=== PATIENT | male | born 1970 | race Caucasian/White ===

== ENCOUNTER 2018-09-07 09:22 | Inpatient (IN) ==
[2018-09-07] MEDS ORDERED: methylPREDNISolone 125 MG/2 ML VIAL IV STA (09:37)
[2018-09-07] MEDS ORDERED: ALBUT/IPRATROP 3MG/0.5MG NEB 3 ML VIAL NEB STA (09:37)
[2018-09-07] MEDS ORDERED: SODIUM CHLORIDE 0.9% 1000ML 1,000 ML IV ONE (09:37)
[2018-09-07 10:06] LABS: Basophils # (auto) 0.02 K/uL (0-0.2); Basophils % (auto) 0.2 %; Eosinophils # (auto) 0.06 K/uL (0-0.5); Eosinophils % (auto) 0.5 %; Hematocrit (blood only) 45.4 % (42-52); Hemoglobin 15.5 g/dL (14.0-18.0); Immature Granulocytes % (auto) 0.8 %; Lymphocytes # (auto) 1.16 K/uL (1.2-3.4); Lymphocytes % (auto) 9.6 %; Mean Corpuscular Hgb Conc 34.1 g/dL (32-36); Mean Corpuscular Volume 93.8 fL (80-100); Mean Platelet Volume 9.8 fL (7.4-10.4); Monocytes % (auto) 14.1 %; Neutrophils # (auto) 9.02 K/uL (1.4-6.5); Neutrophils % (auto) 74.8 %; Platelet Count 427 K/uL (130-400); RDW Coefficient of Variation 12.8 % (11.5-14.5); RDW Standard Deviation 44.2 fL (36.4-46.3); Red Blood Count 4.84 M/uL (4.7-6.1); White Blood Count 12.06 K/uL (4.8-10.8)
[2018-09-07 10:06] LABS: Base Excess VBG 6.7 mEq/L; HCO3 VBG 32 mmol/L; PCO2 VBG 45 mmHg (38-50); PO2 VBG 23 mmHg; pH VBG 7.46 (7.36-7.41)
[2018-09-07 10:07] LABS: Oxygen Saturation VBG < 60.0 %
[2018-09-07] MEDS ORDERED: ONDANSETRON INJ 2 MG/ML 2 ML VIAL IV STA (10:07)
[2018-09-07 10:15] LABS: INR 1.1 (0.9-1.1); Partial Thromboplastin Time 24.7 Seconds (21.0-31.0); Prothrombin Time 11.3 Seconds (9.0-12.0)
--- NOTE | 2018-09-07 10:16 | XRay Report ---
XR chest 1V portable CLINICAL HISTORY: Hypoxia. COMPARISON STUDY: Chest radiograph February 18, 2008. FINDINGS: No pneumothorax or pleural effusion is identified. There is extensive bilateral mid and low er lung airspace opacity. Cardiac size is normal. There is apparent slight widening of the right para tracheal stripe. Several old right rib fractures are incidentally noted. IMPRESSION: Extensive bilateral mid and lower lung airspace opacity which favors pneumonia. Pulmonar y edema could appear similar although is considered less likely. Radiographic follow-up to ensure res olution is recommended. Electronically signed by: Barron Alvarez M.D. 09/07/2018 10:14 AM
[2018-09-07] MEDS ORDERED: VANCOMYCIN HCL 1,000 MG/270 ML BAG IV STA (10:18)
[2018-09-07] MEDS ORDERED: CEFEPIME 1,000 MG in SYRINGE 0 ML IV STA (10:18)
[2018-09-07] MEDS ORDERED: VANCOMYCIN CONSULT ACTIVE PRN (10:18)
[2018-09-07 10:28] LABS: Alanine Aminotransferase 59 U/L (12-78); Albumin Level 2.6 gm/dl (3.4-5.0); Aspartate Aminotransferase 57 U/L (15-37); BUN Creatinine Ratio 15.8 (10-20); Bilirubin Direct 0.6 mg/dl (0-0.2); Blood Urea Nitrogen 13 mg/dl (7-18); Calcium 8.3 mg/dl (8.5-10.1); Carbon Dioxide 29 mmol/L (21-32); Chloride 96 mmol/L (98-107); Creatinine Clr Calc Pharmacy 125.1 ml/min; Est GFR (African American) 123.5; Est GFR (Non-African American) 106.6; Glucose 105 mg/dl (70-99); Sodium 135 mmol/L (136-145)
[2018-09-07 10:33] LABS: Alkaline Phosphatase 66 U/L (45-117); Bilirubin,Total 1.4 mg/dl (0.2-1); Total Protein 6.8 gm/dl (6.4-8.2); Troponin I < 0.015 ng/ml (0-0.045)
[2018-09-07] MEDS ORDERED: POTASSIUM CHLORIDE 10 MEQ TABCR PO STA (10:49)
[2018-09-07 10:58] LABS: Influenza A virus by PCR Neg for Influ A (Neg); Influenza B virus by PCR Neg for Influ B (Neg)
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
[2018-09-07 13:42] LABS: Allen Test Pos (Pos); HCO3 ABG 25 mmol/L (19-24); PCO2 ABG 33 mmHg (35-46); PO2 ABG 72 mm/Hg (80-95); pH ABG 7.49 (7.35-7.45)
[2018-09-07] MEDS ORDERED: ICU PROTOCOL FOR HYPERGLYCEMIA PRN (14:14)
--- NOTE | 2018-09-07 14:56 | Pharmacy Report ---
Pharmacy Abx Dose Short Note - Date of Service September 07, 2018 - Assessment & Plan Assessment 48 year old M receiving vancomycin for treatment of pulmonary source. Day # 1/7 of antimicrobial therapy. Pt population p'kinetics: t1/2=6.6, ke=.104. His renal fxn looks to be at baseline. No other antimicrobials ordered at this point in time. initial PCT=WNL Plan Mr. Henry received a 1000mg (13mg/kg) vanco dose in the ER. Will start vancomycin 1250mg (16mg/kg) q8 early. Trough ordered for 09/08/18 @0930, prior to the third maintenance dose. Goal trough 15-20mcg/mL. Pharmacy will continue to follow and will adjust dose/frequency as necessary. Thank you.
--- NOTE | 2018-09-07 15:46 | Emergency Department Note ---
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 Discharge Assessment Last Done: 09/07/18 13:50 The scribe's documentation has been prepared under my direction and personally reviewed by me in its entirety. I confirm that the note above accurately reflects all work, treatment, procedures, and medical decision making performed by me.
[2018-09-07] MEDS ORDERED: OPTIRAY 320 125ml IV PRN (16:49)
--- NOTE | 2018-09-07 17:10 | CT Scan Report ---
CHEST CTA for PULMONARY ARTERIES CT DOSE: 393.39 mGy.cm HISTORY: Cough. Short of breath. TECHNIQUE: Multiaxial CT images of the chest were performed following the intravenous administration of contrast to evaluate the pulmonary arteries. Maximal intensity projection images were also obtaine d. A dose lowering technique was utilized adhering to the principles of ALARA. COMPARISON STUDY: Chest 09/07/2018. FINDINGS: Normal caliber thoracic aorta with no evidence for dissection. The heart is top normal in s ize. No pericardial effusion. Trace bilateral pleural effusions. The main and lobar pulmonary arterie s are patent. The majority of the segmental and subsegmental pulmonary arteries are not well evaluate d due to the motion artifact and extensive consolidation. There is a single filling defect seen withi n a segmental branch of the left upper lobe best seen on images 143 through 147. This is consistent w ith a small pulmonary embolus. The visualized liver is unremarkable. Lobular appearance to the spleen may be a result of prior trauma or a esophagus is normal and course and caliber. Subcentimeter media stinal and hilar lymph nodes do not meet CT criteria for pathologic involvement. No suspicious lytic or blastic osseous lesions. Old, healed right anterior rib fractures. The central airways are patent. No pneumothorax. Multifocal patchy groundglass airspace opacities seen within the upper to mid lung sounds demonstrating a peripheral distribution and interlobular septal thickening. This would be cons istent with a "crazy paving pattern". The bilateral lower lobe airspace opacities have a more consoli dative appearance but also demonstrate interlobular septal thickening. No areas of cavitation identif ied. IMPRESSION: 1. A single segmental pulmonary embolus within the left upper lobe. 2. Extensive bilateral airspace opacities which demonstrate a peripheral and basilar predominance. Th e majority of these airspace opacities suggest a "crazy paving pattern". This is a nonspecific findin g but can be seen the setting of a bacterial pneumonia, acute respiratory distress syndrome, pulmonar y hemorrhage from Goodpasture's syndrome, or eosinophilic pneumonia. Additional etiologies such as pu lmonary alveolar proteinosis, drug induced pneumonitis, or sarcoidosis could also have a similar appe arance in the appropriate clinical setting. 3. Trace bilateral pleural effusions. Electronically signed by: Jonathan Devine M.D. 09/07/2018 5:09 PM
[2018-09-07] MEDS: VANCOMYCIN HCL 1,250 MG in SODIUM CHLORIDE 0.9% 250 ML IV SCH (18:45)
[2018-09-07] MEDS: methylPREDNISolone 40 MG in SYRINGE 0 ML IV SCH (20:57)
[2018-09-07] MEDS: CEFEPIME 2,000 MG in SYRINGE 7.5 ML IV SCH (20:57)
[2018-09-07] MEDS ORDERED: HEPARIN IV BOLUS 6,000 UNITS in SYRINGE 0 ML IV ONE (21:30)
[2018-09-07] MEDS: HEPARIN STANDARD DEXTROSE 25,000 UNITS/500 ML IV SCH (22:28)
[2018-09-07] MEDS: ALBUT/IPRATROP 3MG/0.5MG NEB 3 ML VIAL NEB PRN (22:29)
[2018-09-08] MEDS: VANCOMYCIN HCL 1,250 MG in SODIUM CHLORIDE 0.9% 250 ML IV SCH ×2 (02:00→09:45)
[2018-09-08] MEDS: methylPREDNISolone 40 MG in SYRINGE 0 ML IV SCH ×2 (02:01→15:16)
[2018-09-08] MEDS: CEFEPIME 2,000 MG in SYRINGE 7.5 ML IV SCH (04:48)
[2018-09-08 05:04] LABS: Magnesium 2.6 mg/dl (1.8-2.4); Phosphorus 3.4 mg/dl (2.5-4.9)
[2018-09-08] MEDS: ALBUT/IPRATROP 3MG/0.5MG NEB 3 ML VIAL NEB PRN (05:15)
[2018-09-08 05:24] LABS: iSTAT Allen Test Pass; iSTAT Arterial Blood Gas HCO3 23 meg/L (19-24); iSTAT Carbon Dioxide 24 mEq/l (24-31); iSTAT FiO2 85 %
[2018-09-08 05:24] LABS: Partial Thromboplastin Time 72.8 Seconds (21.0-31.0)
[2018-09-08 05:32] LABS: Amphetamines+Metham, Urine Neg (Neg); Barbiturates, Urine Neg (Neg); Benzodiazepine, Urine Neg (Neg); Cocaine, Urine Neg (Neg); MDMA (Ecstacy), Urine Neg (Neg); Methadone, Urine Neg (Neg); Opiate, Urine Pos (Neg); Phencyclidine, Urine Neg (Neg)
[2018-09-08 05:44] LABS: Basophils # (auto) 0.01 K/uL (0-0.2); Basophils % (auto) 0.1 %; Hematocrit (blood only) 38.8 % (42-52); Hemoglobin 13.2 g/dL (14.0-18.0); Immature Granulocytes # (auto) 0.06 K/uL (0.00-0.02); Immature Granulocytes % (auto) 0.5 %; Lymphocytes # (auto) 0.82 K/uL (1.2-3.4); Lymphocytes % (auto) 6.6 %; Mean Corpuscular Volume 92.8 fL (80-100); Mean Platelet Volume 9.7 fL (7.4-10.4); Monocytes # (auto) 0.76 K/uL (0.11-0.59); Monocytes % (auto) 6.1 %; Neutrophils # (auto) 10.78 K/uL (1.4-6.5); Neutrophils % (auto) 86.7 %; Platelet Count 469 K/uL (130-400); RDW Standard Deviation 43.9 fL (36.4-46.3); Red Blood Count 4.18 M/uL (4.7-6.1); White Blood Count 12.43 K/uL (4.8-10.8)
[2018-09-08 06:24] LABS: BUN Creatinine Ratio 28.7 (10-20); Calcium 8.1 mg/dl (8.5-10.1); Creatinine Clr Calc Pharmacy 180.9 ml/min; Est GFR (African American) 143.8; Potassium 3.9 mmol/L (3.5-5.1)
--- NOTE | 2018-09-08 07:56 | XRay Report ---
XR chest 1V portable HISTORY: Short of breath. COMPARISON: Chest CTA 09/07/2018. FINDINGS: Peripheral and bibasilar airspace opacities are not significantly changed. The heart remain s top normal in size. No pneumothorax. Trace bilateral pleural effusions persist. IMPRESSION: No change in the bilateral airspace opacities and trace bilateral pleural effusions. Electronically signed by: Jonathan Devine M.D. 09/08/2018 7:55 AM
[2018-09-08 08:16] LABS: Hepatitis B Surface Antigen Neg (Neg)
[2018-09-08] MEDS ORDERED: fentaNYL citrate 100 MCG/2 ML VIAL IV ONE ×2 (08:30→09:37)
[2018-09-08] MEDS ORDERED: SUCCINYLCHOLINE 100MG/5ML SYR IV ONE (08:30)
[2018-09-08] MEDS ORDERED: MIDAZOLAM HCL 5 MG/ML 1 ML VIAL IV ONE (08:30)
[2018-09-08 08:44] LABS: Hepatitis C IgG 13Yrs+Old_Rflx Neg (Neg)
[2018-09-08] MEDS ORDERED: VANCOMYCIN TROUGH ONE (09:30)
[2018-09-08] MEDS ORDERED: CISATRACURIUM BESYLATE IV SOLN 2 MG/ML 10 ML VIAL IV STA (09:32)
[2018-09-08] MEDS ORDERED: PROPOFOL 1,000 MG/100 ML VIAL IV STA (09:32)
[2018-09-08] MEDS ORDERED: fentaNYL citrate 100 MCG/2 ML VIAL IV PRN (09:32)
[2018-09-08] MEDS ORDERED: SUCCINYLCHOLINE CHLORIDE 20 MG/ML 10 ML VIAL IV STA ×2 (09:36→09:39)
[2018-09-08] MEDS ORDERED: fentaNYL citrate 100 MCG/2 ML VIAL IV STA ×2 (09:39→14:13)
[2018-09-08] MEDS ORDERED: PROPOFOL IV EMULSION 10 MG/ML 100 ML VIAL IV ONE (09:42)
[2018-09-08] MEDS ORDERED: RAPID SEQUENCE INDUCTION BAG ONE (09:42)
--- NOTE | 2018-09-08 10:02 | Critical Care Progress Note ---
Date of Service September 08, 2018 Patient reports that he feels better than upon admission however he is short of breath with 3-4 words and definitely more tachypneic. Supervising Physician Co-Signing Physician Notes Reason Critically Ill: 48-year-old male with hypoxemic respiratory failure PLAN: Neuro: Neuromuscular blockade with cisatracurium Bis monitoring goal BIS 40 -Propofol for sedation -Fentanyl for analgesia Resp: Mechanical ventilation utilizing [place] that guidelines -Starting at 450 tidal volume and decreasing from their goal pH 7.2 CV: Tachycardia likely secondary to anxiety Fluids/Renal: Normosol at 80 ID: Vancomycin and cefepime -Finished course of doxycycline previously -Bronchoscopy later today for samples -Urine drug screen positive for opiates reports he had taken codeine cough syrup for approximately 4 days -Denies IVDA, HIV and hepatitis pending GI/Nutrition: Start trickle feeds History of splenectomy -Has residual splenic tissue seen on CT Heme: Small subsegmental PE -Heparin infusion DVT prophylaxis: Heparin infusion Endocrine: ICU hyperglycemia protocol Solu-Medrol 40 every 6x3 doses given -Holding while undergoing neuromuscular blockade Vascular access: Peripheral IVs Code Status: Full code I have personally spent 70 minutes of critical care time in the direct management of this patient. This is a life/limb threatening event. This includes time spent evaluating patient, direct bedside care, chart review, placing orders, interpretation of diagnostic studies, discussion with consultants, patient, and/or family members regarding treatment decisions, as well as other required patient management activities. This time is exclusive of all separately billable procedures, and teaching time and separate from and in addition to any other critical care service time. Physical Exam 2 Vital Signs (Past 24 Hours): Last Vital Signs Temp 36.6 C 09/08/18 04:00 Pulse 99 H 09/08/18 06:00 Resp 20 09/08/18 06:00 BP 119/70 09/08/18 06:00 Pulse Ox 95 09/08/18 06:00 General: Alert. nontoxic. Skin: Warm, dry, Head: Atraumatic Ears, nose, mouth and throat: airway patent Cardiovascular: Normal peripheral perfusion, tachycardia Respiratory: Tachypnea with accessory muscle use and coarse breath sounds bilaterally Gastrointestinal: Non distended Musculoskeletal: No deformity
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
[2018-09-08] MEDS: PROPOFOL 1,000 MG/100 ML VIAL IV SCH ×2 (10:30→13:55)
[2018-09-08] MEDS: fentaNYL DRIP 1,250 MCG/250 ML BAG IV SCH ×2 (10:30→19:07)
[2018-09-08] MEDS ORDERED: CISATRACURIUM BOLUS FROM BAG IV ONE (10:30)
[2018-09-08] MEDS: CISATRACURIUM BESYLATE 40 MG in 0.9 % SODIUM CHLORIDE 80 ML IV SCH ×4 (10:45→22:19)
--- NOTE | 2018-09-08 11:22 | Procedure Note ---
Procedure Note: Bronchoscopy Procedure Procedure date: September 08, 2018 Procedure: fiberoptic bronchoscopy Pre-procedure Diagnosis: Acute hypoxic respiratory failure Post-procedure Diagnosis: same as above Prior to Procedure: Informed Consent: The risks, benefits, indications, potential complications, and alternatives were explained to the patient and informed consent obtained. Attending Staff: Arjun Bernal DO Resident/APC: Not applicable Skin Prep: Not applicable Anesthesia: Continuous propofol infusion, IV fentanyl infusion Indications: 48-year-old male with acute hypoxic respiratory failure bilateral infiltrates. The identity of the patient was confirmed and a bedside time out was performed. Description of Procedure: Fiberoptic bronchoscopy was performed via endotracheal tube. Bronchioalveolar lavage right middle lobe was performed. Findings included: Serial lavage did not demonstrate diffuse alveolar hemorrhage , lungs were hyperemic with evidence of inflammation however there was no purulence to indicate bacterial infection. Complications: None Specimens: Bronchial washings sent for culture and Gram stain, cytology, fungal elements, and AFB stain and culture. Estimated blood loss: Zero
[2018-09-08] MEDS: ACYCLOVIR SOD 780 MG in DEXTROSE 5% 250 ML IV SCH ×2 (12:28→19:46)
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
[2018-09-08] MEDS: NORMOSOL-R 1,000 ML IV SCH (13:17)
[2018-09-08 13:38] LABS: iSTAT Allen Test Pass; iSTAT Arterial Blood Gas HCO3 26 meg/L (19-24); iSTAT Carbon Dioxide 27 mEq/l (24-31); iSTAT FiO2 60 %
[2018-09-08] MEDS ORDERED: MIDAZOLAM HCL 1 MG/ML 2ML VIAL IV PRN (14:11)
[2018-09-08] MEDS ORDERED: MIDAZOLAM HCL 1 MG/ML 2ML VIAL IV ONE ×2 (14:17→17:33)
[2018-09-08] MEDS ORDERED: MIDAZOLAM HCL 5 MG/ML 1 ML VIAL ONE (15:18)
--- NOTE | 2018-09-08 15:32 | Procedure Note ---
Procedure Note Date of Service September 08, 2018 Note Procedure Name: Central venous catheter placement Date of Service: 09/08/2018 Time of procedure: 14:50 Site: Right internal jugular Consent: Obtained in writing by Dr. Bernal prior to the procedure Indication: Poor venous access, need for medication administration Narrative: A time out was performed. Using bedside ultra sound, the right IJ vein was identified as well as the right carotid artery. Images were obtained and saved to the PACS system. Using strict sterile technique, the ultra sound was used to identify the right internal juglar vein and 3 Mls of 1% lidocaine was used to anesthetize the area. With the IJ identified, a finder needle was advanced using negative pressure until a flash was observed in the syringe. I was able to easily draw blood into the syringe. A guidewire was then easily advanced into the vein and the finder needle was withdrawn. A dilator was then used and advanced without an incision. The dilator was then removed and a triple lumen catheter was easily placed to 15cm. There was no significant ectopy on the monitor and no hemodynamic change. The guidewire was easily removed and claves were placed on each hub. There was adequate draw and flush with each of the three ports. A chlorhexadine disc was placed at the insertion site of the catheter. The proximal hub was then secured with two sutures. The distal hub was secured with a STATLok device. A sterile dressing was placed over the catheter. Complications: None Blood loss: 2 mls The patient tolerated the procedure well. A post procedure CXR was obtained and showed adequate placement of the catheter and no evidence of pneumothorax. At the completion of the procedure, Dr. Bernal was updated.
--- NOTE | 2018-09-08 15:36 | XRay Report ---
XR chest 1V portable CLINICAL HISTORY: Placement of Right IJ CVC dyspnea. Tube position. COMPARISON STUDY: 09/08/2018 6:35 AM FINDINGS: Unchanging bibasilar parenchymal infiltrative change. Endotracheal tube 5 cm above the mel na. Central catheter in superior vena cava. No evidence of pneumothorax. Nasogastric tube inferior to the diaphragm. IMPRESSION: 1. Central catheters. Vena cava. No evidence pneumothorax. Endotracheal tube 5 cm above the charles. N asogastric tube inferior to the diaphragm. The above report was generated using voice recognition software. It may contain grammatical, syntax or spelling errors. Electronically signed by: Rodríguez Shah M.D. 09/08/2018 3:34 PM
--- NOTE | 2018-09-08 16:33 | Procedure Note ---
Procedure Note Date of Service September 08, 2018 Procedure Date: Noted above Procedure: Endotracheal intubation Pre-procedure Diagnosis: Hypoxic respiratory failure Post-procedure Diagnosis: same as above Prior to Procedure: Informed Consent: Risks and benefits have been discussed and informed consent had been obtained from the patient Attending Staff: Arjun Bernal DO Indications: Acute hypoxic respiratory failure The identity of the patient was confirmed and a bedside time out was performed. Description of Procedure: Patient was evaluated and required intubation for impending respiratory failure. The patient was prepared in the usual fashion. A 2 Butts laryngoscope was used. A 8-0 endotrachial tube was placed endotracheally to 24 cm at the teeth. A grade 2 view was obtained. The endotracheal tube was noted to pass through the vocal cords. Chest rise was bilateral. Bilateral breath sounds were heard without air sounds in the abdomen. Mist was noted in the endotracheal tube. End-tidal CO2 measurement was positive. Position was confirmed via bronchoscopy Complications: None Findings: Not applicable Specimens: Not applicable Estimated blood loss: Zero
[2018-09-08] MEDS: MIDAZOLAM HCL 125 MG/250 ML BAG IV SCH (17:58)
[2018-09-08] MEDS: HEPARIN STANDARD DEXTROSE 25,000 UNITS/500 ML IV SCH (18:02)
[2018-09-09] MEDS: NORMOSOL-R 1,000 ML IV SCH ×2 (00:32→13:06)
[2018-09-09] MEDS: fentaNYL DRIP 1,250 MCG/250 ML BAG IV SCH ×3 (02:36→20:10)
[2018-09-09] MEDS: CISATRACURIUM BESYLATE 40 MG in 0.9 % SODIUM CHLORIDE 80 ML IV SCH ×5 (04:30→22:19)
[2018-09-09] MEDS: ACYCLOVIR SOD 780 MG in DEXTROSE 5% 250 ML IV SCH ×3 (04:34→20:13)
[2018-09-09 04:51] LABS: Hematocrit (blood only) 36.9 % (42-52); Hemoglobin 12.1 g/dL (14.0-18.0); Mean Corpuscular Hgb Conc 32.8 g/dL (32-36); Mean Corpuscular Volume 96.1 fL (80-100); Mean Platelet Volume 9.7 fL (7.4-10.4); Platelet Count 563 K/uL (130-400); RDW Coefficient of Variation 13.3 % (11.5-14.5); RDW Standard Deviation 46.7 fL (36.4-46.3); Red Blood Count 3.84 M/uL (4.7-6.1); White Blood Count 22.22 K/uL (4.8-10.8)
[2018-09-09 05:06] LABS: Partial Thromboplastin Ratio 1.3; Partial Thromboplastin Time 34.1 Seconds (21.0-31.0)
[2018-09-09 05:19] LABS: BUN Creatinine Ratio 38.2 (10-20); Blood Urea Nitrogen 16 mg/dl (7-18); Calcium 7.7 mg/dl (8.5-10.1); Carbon Dioxide 31 mmol/L (21-32); Chloride 106 mmol/L (98-107); Creatinine Clr Calc Pharmacy 241.2 ml/min; Est GFR (African American) > 150.0; Est GFR (Non-African American) 139.6; Glucose 126 mg/dl (70-99); Magnesium 2.7 mg/dl (1.8-2.4); Phosphorus 3.5 mg/dl (2.5-4.9); Potassium 4.2 mmol/L (3.5-5.1); Sodium 138 mmol/L (136-145)
[2018-09-09] MEDS ORDERED: HEPARIN IV BOLUS 6,000 UNITS in SYRINGE 0 ML IV ONE (05:30)
[2018-09-09 05:38] LABS: iSTAT Allen Test Pass; iSTAT Arterial Blood Gas HCO3 31 meg/L (19-24); iSTAT Carbon Dioxide 33 mEq/l (24-31); iSTAT FiO2 30 %
--- NOTE | 2018-09-09 07:29 | XRay Report ---
XR chest 1V portable CLINICAL HISTORY: f/u COMPARISON STUDY: Chest radiograph September 08, 2018. Chest CT September 07, 2018. FINDINGS: Tip of endotracheal tube is 5.7 cm above the charles. Tip of nasogastric tube is below lower aspect of this image but at least within the body of the stomach. Right internal jugular central huy e remains in place. There is no pneumothorax. No pleural effusion is identified. Bilateral airspace o pacities persist but have slightly improved. IMPRESSION: 1. Persistent, but slightly improved, extensive bilateral airspace opacities. 2. Satisfactory positioning of lines and tubes. Electronically signed by: Barron Alvarez M.D. 09/09/2018 7:28 AM
[2018-09-09] MEDS: HEPARIN STANDARD DEXTROSE 25,000 UNITS/500 ML IV SCH (09:14)
--- NOTE | 2018-09-09 10:07 | Critical Care Progress Note ---
Date of Service September 09, 2018 Supervising Physician Co-Signing Physician Notes Reason Critically Ill: 48-year-old male with hypoxemic respiratory failure PLAN: Neuro: Neuromuscular blockade with cisatracurium: Continue another 24 hours Bis monitoring goal BIS 40 -Propofol converted to Versed given hypotension -Fentanyl decrease and increase Versed Resp: Mechanical ventilation utilizing ARDSnet that guidelines -350 tidal volume, PEEP 8, FiO2 30 -P to F ratio 213 improved from severe regards to moderate arts CV: Tachycardia likely secondary to anxiety Fluids/Renal: Normosol at 80 ID: Vancomycin and cefepime discontinued -Finished course of doxycycline previously -Bronchoscopy results pending -Urine drug screen positive for opiates reports he had taken codeine cough syrup for approximately 4 days -Denies IVDA, HIV and hepatitis: Both negative GI/Nutrition: trickle feeds History of splenectomy -Has residual splenic tissue seen on CT Heme: Small subsegmental PE -Heparin infusion DVT prophylaxis: Heparin infusion Endocrine: ICU hyperglycemia protocol Solu-Medrol 40 every 6x3 doses given -Holding while undergoing neuromuscular blockade Vascular access: Peripheral IVs Code Status: Full code I have personally spent 45 minutes of critical care time in the direct management of this patient. This is a life/limb threatening event. This includes time spent evaluating patient, direct bedside care, chart review, placing orders, interpretation of diagnostic studies, discussion with consultants, patient, and/or family members regarding treatment decisions, as well as other required patient management activities. This time is exclusive of all separately billable procedures, and teaching time and separate from and in addition to any other critical care service time. Subjective No overnight events Physical Exam 2 Vital Signs (Past 24 Hours): Last Vital Signs Temp 36.9 C 09/09/18 04:00 Pulse 87 09/09/18 07:10 Resp 18 09/09/18 07:10 BP 125/85 09/09/18 06:00 Pulse Ox 93 09/09/18 07:10 General: Alert. nontoxic. Skin: Warm, dry, Head: Atraumatic Ears, nose, mouth and throat: Airway obscured by endotracheal tube Cardiovascular: Normal peripheral perfusion Respiratory: Coarse sounds bilaterally Gastrointestinal: Non distended Musculoskeletal: No deformity
[2018-09-09 11:24] LABS: Partial Thromboplastin Time 182.3 Seconds (21.0-31.0)
[2018-09-09 12:08] LABS: Partial Thromboplastin Ratio 6.2
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
[2018-09-09 13:04] LABS: Partial Thromboplastin Ratio 4.9
[2018-09-09 13:12] LABS: Partial Thromboplastin Time 127.7 Seconds (21.0-31.0)
[2018-09-09 14:17] LABS: Partial Thromboplastin Ratio 2.7
[2018-09-09 14:19] LABS: Partial Thromboplastin Time 69.7 Seconds (21.0-31.0)
[2018-09-09] MEDS: MIDAZOLAM HCL 125 MG/250 ML BAG IV SCH (15:10)
[2018-09-09 20:08] LABS: Partial Thromboplastin Ratio 2.7
[2018-09-09 20:12] LABS: Partial Thromboplastin Time 70.7 Seconds (21.0-31.0)
[2018-09-10] MEDS: NORMOSOL-R 1,000 ML IV SCH (01:30)
[2018-09-10] MEDS: CISATRACURIUM BESYLATE 40 MG in 0.9 % SODIUM CHLORIDE 80 ML IV SCH ×3 (02:14→10:36)
[2018-09-10 04:50] LABS: Partial Thromboplastin Ratio 2.6
[2018-09-10 04:56] LABS: Alanine Aminotransferase 43 U/L (12-78); Albumin Level 1.8 gm/dl (3.4-5.0); Anion Gap 0 (3-11); Aspartate Aminotransferase 12 U/L (15-37); BUN Creatinine Ratio 35.4 (10-20); Bilirubin Direct 0.1 mg/dl (0-0.2); Blood Urea Nitrogen 13 mg/dl (7-18); Calcium 7.3 mg/dl (8.5-10.1); Carbon Dioxide 32 mmol/L (21-32); Chloride 100 mmol/L (98-107); Creatinine Clr Calc Pharmacy 273.8 ml/min; Est GFR (African American) > 150.0; Est GFR (Non-African American) 147.1; Glucose 92 mg/dl (70-99); Magnesium 2.3 mg/dl (1.8-2.4); Partial Thromboplastin Time 68.5 Seconds (21.0-31.0); Potassium 3.7 mmol/L (3.5-5.1); Sodium 132 mmol/L (136-145)
[2018-09-10 04:59] LABS: Alkaline Phosphatase 51 U/L (45-117); Bilirubin,Total 0.4 mg/dl (0.2-1); Total Protein 5.1 gm/dl (6.4-8.2)
[2018-09-10] MEDS: ACYCLOVIR SOD 780 MG in DEXTROSE 5% 250 ML IV SCH ×3 (05:16→19:24)
[2018-09-10 05:34] LABS: iSTAT Allen Test Pass; iSTAT Arterial Blood Gas HCO3 29 meg/L (19-24); iSTAT Carbon Dioxide 31 mEq/l (24-31); iSTAT FiO2 30 %
[2018-09-10 06:01] LABS: Eosinophils # (auto) 0.07 K/uL (0-0.5); Eosinophils % (auto) 0.5 %; Hematocrit (blood only) 35.1 % (42-52); Hemoglobin 11.7 g/dL (14.0-18.0); Immature Granulocytes # (auto) 0.08 K/uL (0.00-0.02); Immature Granulocytes % (auto) 0.6 %; Lymphocytes # (auto) 1.34 K/uL (1.2-3.4); Lymphocytes % (auto) 9.6 %; Mean Corpuscular Hgb Conc 33.3 g/dL (32-36); Mean Corpuscular Volume 96.4 fL (80-100); Mean Platelet Volume 9.7 fL (7.4-10.4); Monocytes # (auto) 2.08 K/uL (0.11-0.59); Monocytes % (auto) 14.9 %; Neutrophils # (auto) 10.38 K/uL (1.4-6.5); Neutrophils % (auto) 74.4 %; Platelet Count 568 K/uL (130-400); RDW Coefficient of Variation 12.8 % (11.5-14.5); RDW Standard Deviation 45.2 fL (36.4-46.3); Red Blood Count 3.64 M/uL (4.7-6.1); White Blood Count 13.95 K/uL (4.8-10.8)
[2018-09-10] MEDS: fentaNYL DRIP 1,250 MCG/250 ML BAG IV SCH ×2 (06:55→16:00)
[2018-09-10] MEDS: HEPARIN STANDARD DEXTROSE 25,000 UNITS/500 ML IV SCH (07:17)
[2018-09-10] MEDS: MIDAZOLAM HCL 125 MG/250 ML BAG IV SCH (07:17)
--- NOTE | 2018-09-10 07:48 | XRay Report ---
XR chest 1V portable CLINICAL HISTORY: Respiratory failure COMPARISON STUDY: 09/09/2018 FINDINGS: There is an endotracheal tube 4.7 cm above the charles. There is a right internal jugular ce ntral venous catheter which projects over the superior vena cava. There is a nasogastric tube within the stomach. There are worsening bilateral pulmonary airspace opacities with a lower lung zone periph eral distribution. No pleural effusions are suspected. IMPRESSION: Worsening bilateral pulmonary airspace opacities. Electronically signed by: Liban Alston M.D. 09/10/2018 7:47 AM
[2018-09-10] MEDS ORDERED: SENNA 8.6 MG TAB PO PRN (08:20)
--- NOTE | 2018-09-10 08:59 | Critical Care Progress Note ---
Date of Service September 10, 2018 Supervising Physician Co-Signing Physician Notes Reason Critically Ill: 48-year-old male with hypoxemic respiratory failure PLAN: Neuro: Neuromuscular blockade with cisatracurium: Discontinued this morning Bis monitoring goal BIS 40, continue heavy sedation for 24 hours -Versed -Fentanyl Resp: Mechanical ventilation utilizing ARDSnet that guidelines -400 tidal volume, PEEP 8, FiO2 30 -P to F ratio 193 CV: Tachycardia resolved Fluids/Renal: Discontinue additional fluids convert to tube feed formulation ID: Vancomycin and cefepime discontinued -Finished course of doxycycline previously -Bronchoscopy results have a normal xiomara -Urine drug screen positive for opiates reports he had taken codeine cough syrup for approximately 4 days -Denies IVDA, HIV and hepatitis: Both negative GI/Nutrition: Increased to goal History of splenectomy -Has residual splenic tissue seen on CT Heme: Small subsegmental PE -Heparin infusion DVT prophylaxis: Heparin infusion Endocrine: ICU hyperglycemia protocol Solu-Medrol 40 every 6x3 doses given -Holding while undergoing neuromuscular blockade Vascular access: Peripheral IVs Code Status: Full code Patient was discussed on multidisciplinary rounds I have personally spent 40 minutes of critical care time in the direct management of this patient. This is a life/limb threatening event. This includes time spent evaluating patient, direct bedside care, chart review, placing orders, interpretation of diagnostic studies, discussion with consultants, patient, and/or family members regarding treatment decisions, as well as other required patient management activities. This time is exclusive of all separately billable procedures, and teaching time and separate from and in addition to any other critical care service time. Subjective No overnight events Physical Exam 2 Vital Signs (Past 24 Hours): Last Vital Signs Temp 37.0 C 09/10/18 00:01 Pulse 109 H 09/10/18 07:31 Resp 18 09/10/18 07:31 BP 104/68 09/10/18 07:01 Pulse Ox 90 09/10/18 07:31 General: Alert. nontoxic. Skin: Warm, dry, Head: Atraumatic Ears, nose, mouth and throat: Airway obscured by endotracheal tube Cardiovascular: Normal peripheral perfusion Respiratory: Coarse sounds bilaterally Gastrointestinal: Non distended Musculoskeletal: No deformity Results & Data Laboratory Results 09/10/18 09/10/18 09/10/18 Range/Units 05:21 04:06 04:03 WBC 13.95 H (4.8-10.8) K/uL RBC 3.64 L (4.7-6.1) M/uL Hgb 11.7 L (14.0-18.0) g/dL Hct 35.1 L (42-52) % MCV 96.4 (80-100) fL MCH 32.1 (25-34) pg MCHC 33.3 (32-36) g/dL RDW Std Deviation 45.2 (36.4-46.3) fL RDW Coeff of [place] 12.8 (11.5-14.5) % Plt Count 568 H (130-400) K/uL MPV 9.7 (7.4-10.4) fL Immature Gran % (Auto) 0.6 % Neut % (Auto) 74.4 % Lymph % (Auto) 9.6 % [place] % (Auto) 14.9 % Eos % (Auto) 0.5 % Baso % (Auto) 0.0 % Immature Gran # (Auto) 0.08 H (0.00-0.02) K/uL Neut # (Auto) 10.38 H (1.4-6.5) K/uL Lymph # (Auto) 1.34 (1.2-3.4) K/uL [place] # (Auto) 2.08 H (0.11-0.59) K/uL Eos # (Auto) 0.07 (0-0.5) K/uL Baso # (Auto) 0.00 (0-0.2) K/uL APTT 68.5 H* (21.0-31.0) Seconds PTT Ratio 2.6 Sample Site R Radial POC pH 7.38 (7.35-7.45) POC pCO2 49 H (35-46) mmHg POC pO2 58 L (80-95) mmHg POC HCO3 29 H (19-24) sara/L POC Total CO2 31 (24-31) mEq/l POC Base Excess 4.0 H (-9-1.8) sara/L POC ABG O2 Sat 88.0 L (90-95) % Saúl Test Pass O2 Delivery Device Ventilator POC O2 Rate 18 Minute Ventilation 6.4 POC FiO2 30 % Tidal Volume 350 PEEP 5 Sodium (136-145) mmol/L Potassium (3.5-5.1) mmol/L Chloride (98-107) mmol/L Carbon Dioxide (21-32) mmol/L Anion Gap (3-11) BUN (7-18) mg/dl Creatinine (0.6-1.4) mg/dl Est Cr Clr Drug Dosing ml/min Est GFR ( Amer) Est GFR (Non-Af Amer) BUN/Creatinine Ratio (10-20) Glucose (70-99) mg/dl POC Glucose (70-99) Calcium (8.5-10.1) mg/dl Magnesium (1.8-2.4) mg/dl Total Bilirubin (0.2-1) mg/dl Direct Bilirubin (0-0.2) mg/dl AST (15-37) U/L ALT (12-78) U/L Alkaline Phosphatase (45-117) U/L Total Protein (6.4-8.2) gm/dl Albumin (3.4-5.0) gm/dl 09/10/18 09/10/18 09/09/18 Range/Units 04:03 00:48 19:42 WBC (4.8-10.8) K/uL RBC (4.7-6.1) M/uL Hgb (14.0-18.0) g/dL Hct (42-52) % MCV (80-100) fL MCH (25-34) pg MCHC (32-36) g/dL RDW Std Deviation (36.4-46.3) fL RDW Coeff of [place] (11.5-14.5) % Plt Count (130-400) K/uL MPV (7.4-10.4) fL Immature Gran % (Auto) % Neut % (Auto) % Lymph % (Auto) % [place] % (Auto) % Eos % (Auto) % Baso % (Auto) % Immature Gran # (Auto) (0.00-0.02) K/uL Neut # (Auto) (1.4-6.5) K/uL Lymph # (Auto) (1.2-3.4) K/uL [place] # (Auto) (0.11-0.59) K/uL Eos # (Auto) (0-0.5) K/uL Baso # (Auto) (0-0.2) K/uL APTT 70.7 H* (21.0-31.0) Seconds PTT Ratio 2.7 Sample Site POC pH (7.35-7.45) POC pCO2 (35-46) mmHg POC pO2 (80-95) mmHg POC HCO3 (19-24) sara/L POC Total CO2 (24-31) mEq/l POC Base Excess (-9-1.8) sara/L POC ABG O2 Sat (90-95) % Saúl Test O2 Delivery Device POC O2 Rate Minute Ventilation POC FiO2 % Tidal Volume PEEP Sodium 132 L (136-145) mmol/L Potassium 3.7 (3.5-5.1) mmol/L Chloride 100 (98-107) mmol/L Carbon Dioxide 32 (21-32) mmol/L Anion Gap 0 L (3-11) BUN 13 (7-18) mg/dl Creatinine 0.37 L (0.6-1.4) mg/dl Est Cr Clr Drug Dosing 273.8 ml/min Est GFR ( Amer) > 150.0 Est GFR (Non-Af Amer) 147.1 BUN/Creatinine Ratio 35.4 H (10-20) Glucose 92 (70-99) mg/dl POC Glucose 75 (70-99) Calcium 7.3 L (8.5-10.1) mg/dl Magnesium 2.3 (1.8-2.4) mg/dl Total Bilirubin 0.4 (0.2-1) mg/dl Direct Bilirubin 0.1 (0-0.2) mg/dl AST 12 L (15-37) U/L ALT 43 (12-78) U/L Alkaline Phosphatase 51 (45-117) U/L Total Protein 5.1 L (6.4-8.2) gm/dl Albumin 1.8 L (3.4-5.0) gm/dl 09/09/18 09/09/18 09/09/18 Range/Units 19:28 13:35 12:31 WBC (4.8-10.8) K/uL RBC (4.7-6.1) M/uL Hgb (14.0-18.0) g/dL Hct (42-52) % MCV (80-100) fL MCH (25-34) pg MCHC (32-36) g/dL RDW Std Deviation (36.4-46.3) fL RDW Coeff of [place] (11.5-14.5) % Plt Count (130-400) K/uL MPV (7.4-10.4) fL Immature Gran % (Auto) % Neut % (Auto) % Lymph % (Auto) % [place] % (Auto) % Eos % (Auto) % Baso % (Auto) % Immature Gran # (Auto) (0.00-0.02) K/uL Neut # (Auto) (1.4-6.5) K/uL Lymph # (Auto) (1.2-3.4) K/uL [place] # (Auto) (0.11-0.59) K/uL Eos # (Auto) (0-0.5) K/uL Baso # (Auto) (0-0.2) K/uL APTT 69.7 H* 127.7 H* (21.0-31.0) Seconds PTT Ratio 2.7 4.9 Sample Site POC pH (7.35-7.45) POC pCO2 (35-46) mmHg POC pO2 (80-95) mmHg POC HCO3 (19-24) sara/L POC Total CO2 (24-31) mEq/l POC Base Excess (-9-1.8) sara/L POC ABG O2 Sat (90-95) % Saúl Test O2 Delivery Device POC O2 Rate Minute Ventilation POC FiO2 % Tidal Volume PEEP Sodium (136-145) mmol/L Potassium (3.5-5.1) mmol/L Chloride (98-107) mmol/L Carbon Dioxide (21-32) mmol/L Anion Gap (3-11) BUN (7-18) mg/dl Creatinine (0.6-1.4) mg/dl Est Cr Clr Drug Dosing ml/min Est GFR ( Amer) Est GFR (Non-Af Amer) BUN/Creatinine Ratio (10-20) Glucose (70-99) mg/dl POC Glucose 92 (70-99) Calcium (8.5-10.1) mg/dl Magnesium (1.8-2.4) mg/dl Total Bilirubin (0.2-1) mg/dl Direct Bilirubin (0-0.2) mg/dl AST (15-37) U/L ALT (12-78) U/L Alkaline Phosphatase (45-117) U/L Total Protein (6.4-8.2) gm/dl Albumin (3.4-5.0) gm/dl 01/16/19 01/16/19 01/16/19 Range/Units 12:16 11:38 10:45 WBC (4.8-10.8) K/uL RBC (4.7-6.1) M/uL Hgb (14.0-18.0) g/dL Hct (42-52) % MCV (80-100) fL MCH (25-34) pg MCHC (32-36) g/dL RDW Std Deviation (36.4-46.3) fL RDW Coeff of [place] (11.5-14.5) % Plt Count (130-400) K/uL MPV (7.4-10.4) fL Immature Gran % (Auto) % Neut % (Auto) % Lymph % (Auto) % [place] % (Auto) % Eos % (Auto) % Baso % (Auto) % Immature Gran # (Auto) (0.00-0.02) K/uL Neut # (Auto) (1.4-6.5) K/uL Lymph # (Auto) (1.2-3.4) K/uL [place] # (Auto) (0.11-0.59) K/uL Eos # (Auto) (0-0.5) K/uL Baso # (Auto) (0-0.2) K/uL APTT 162.0 H* 182.3 H* (21.0-31.0) Seconds PTT Ratio 6.2 7.0 Sample Site POC pH (7.35-7.45) POC pCO2 (35-46) mmHg POC pO2 (80-95) mmHg POC HCO3 (19-24) sara/L POC Total CO2 (24-31) mEq/l POC Base Excess (-9-1.8) sara/L POC ABG O2 Sat (90-95) % Saúl Test O2 Delivery Device POC O2 Rate Minute Ventilation POC FiO2 % Tidal Volume PEEP Sodium (136-145) mmol/L Potassium (3.5-5.1) mmol/L Chloride (98-107) mmol/L Carbon Dioxide (21-32) mmol/L Anion Gap (3-11) BUN (7-18) mg/dl Creatinine (0.6-1.4) mg/dl Est Cr Clr Drug Dosing ml/min Est GFR ( Amer) Est GFR (Non-Af Amer) BUN/Creatinine Ratio (10-20) Glucose (70-99) mg/dl POC Glucose 107 H (70-99) Calcium (8.5-10.1) mg/dl Magnesium (1.8-2.4) mg/dl Total Bilirubin (0.2-1) mg/dl Direct Bilirubin (0-0.2) mg/dl AST (15-37) U/L ALT (12-78) U/L Alkaline Phosphatase (45-117) U/L Total Protein (6.4-8.2) gm/dl Albumin (3.4-5.0) gm/dl
[2018-09-10 10:05] LABS: CMV DNA Qnt Real Time PCR <200 IU/mL (<200); CMV DNA Quant PCR <2.30 log IU/mL (<2.30)
[2018-09-10] MEDS: IMPACT LIQD 1.0 CAL 1,000 ML BAG OG SCH (11:46)
[2018-09-10] MEDS: PANTOprazole 40 MG in SYRINGE 0 ML IV SCH (11:48)
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
[2018-09-11] MEDS: HEPARIN STANDARD DEXTROSE 25,000 UNITS/500 ML IV SCH ×3 (00:57→17:11)
[2018-09-11] MEDS: MIDAZOLAM HCL 125 MG/250 ML BAG IV SCH ×2 (00:57→23:48)
[2018-09-11] MEDS: ACYCLOVIR SOD 780 MG in DEXTROSE 5% 250 ML IV SCH ×3 (04:21→20:29)
[2018-09-11 04:38] LABS: Basophils # (auto) 0.01 K/uL (0-0.2); Basophils % (auto) 0.1 %; Eosinophils # (auto) 0.06 K/uL (0-0.5); Eosinophils % (auto) 0.6 %; Hematocrit (blood only) 35.9 % (42-52); Immature Granulocytes # (auto) 0.05 K/uL (0.00-0.02); Immature Granulocytes % (auto) 0.5 %; Lymphocytes # (auto) 1.47 K/uL (1.2-3.4); Lymphocytes % (auto) 15.5 %; Mean Corpuscular Hgb Conc 33.4 g/dL (32-36); Mean Corpuscular Volume 93.7 fL (80-100); Mean Platelet Volume 9.5 fL (7.4-10.4); Monocytes # (auto) 1.52 K/uL (0.11-0.59); Neutrophils % (auto) 67.3 %; Platelet Count 481 K/uL (130-400); RDW Coefficient of Variation 12.6 % (11.5-14.5); RDW Standard Deviation 42.3 fL (36.4-46.3); Red Blood Count 3.83 M/uL (4.7-6.1); White Blood Count 9.51 K/uL (4.8-10.8)
[2018-09-11 04:59] LABS: Partial Thromboplastin Ratio 2.6
[2018-09-11 05:02] LABS: Partial Thromboplastin Time 67.8 Seconds (21.0-31.0)
[2018-09-11 05:23] LABS: BUN Creatinine Ratio 22.2 (10-20); Blood Urea Nitrogen 11 mg/dl (7-18); Calcium 7.5 mg/dl (8.5-10.1); Carbon Dioxide 30 mmol/L (21-32); Chloride 104 mmol/L (98-107); Creatinine Clr Calc Pharmacy 206.8 ml/min; Est GFR (African American) > 150.0; Glucose 110 mg/dl (70-99); Phosphorus 1.9 mg/dl (2.5-4.9); Potassium 2.9 mmol/L (3.5-5.1); Sodium 137 mmol/L (136-145)
[2018-09-11] MEDS: fentaNYL DRIP 1,250 MCG/250 ML BAG IV SCH (07:24)
--- NOTE | 2018-09-11 07:45 | Critical Care Progress Note ---
Date of Service September 11, 2018 Supervising Physician Co-Signing Physician Notes Reason Critically Ill: 48-year-old male with hypoxemic respiratory failure PLAN: Neuro: Neuromuscular blockade with cisatracurium: Discontinued after 48 hours Will start daily awakening trial -Versed -Fentanyl Resp: Mechanical ventilation utilizing ARDSnet that guidelines -400 tidal volume, PEEP 5, FiO2 40 -Lung ultrasound yesterday revealed significant pulmonary edema -Patient auto diuresing anticipate the patient will continue to make strides in pulmonary system CV: Tachycardia resolved Fluids/Renal: Auto diuresing -40 M EQ twice daily potassium chloride today ID: Vancomycin and cefepime discontinued -Finished course of doxycycline previously -Bronchoscopy results have a normal xiomara -Urine drug screen positive for opiates reports he had taken codeine cough syrup for approximately 4 days -Denies IVDA, HIV and hepatitis: Both negative GI/Nutrition: Increased to goal History of splenectomy -Has residual splenic tissue seen on CT Heme: Small subsegmental PE -Heparin infusion DVT prophylaxis: Heparin infusion Endocrine: ICU hyperglycemia protocol Solu-Medrol 40 every 6x3 doses given discontinued while undergoing neuromuscular blockade -We will reinstitute today as it has been greater than 24 hours since any Nimbex -Prednisone 40 mg x 4 days then taper 10 mg every 4 days Vascular access: Peripheral IVs Code Status: Full code Patient was discussed on multidisciplinary rounds I have personally spent 35 minutes of critical care time in the direct management of this patient. This is a life/limb threatening event. This includes time spent evaluating patient, direct bedside care, chart review, placing orders, interpretation of diagnostic studies, discussion with consultants, patient, and/or family members regarding treatment decisions, as well as other required patient management activities. This time is exclusive of all separately billable procedures, and teaching time and separate from and in addition to any other critical care service time. Subjective No overnight events, diuresed approximately 4 L without additional diuretics Physical Exam 2 Vital Signs (Past 24 Hours): Last Vital Signs Temp 37.5 C 09/11/18 00:00 Pulse 93 H 09/11/18 06:00 Resp 18 09/11/18 06:00 BP 105/71 09/11/18 06:00 Pulse Ox 91 09/11/18 06:00 General: Arouses to voice moving all 4 extremities. RASS -2 nontoxic. Skin: Warm, dry, Head: Atraumatic Ears, nose, mouth and throat: Obscured by endotracheal tube Cardiovascular: Normal peripheral perfusion Respiratory: no respiratory distress improved aeration and breath sounds bilaterally Gastrointestinal: Non distended Musculoskeletal: No deformity Results & Data Laboratory Results 09/11/18 09/11/18 09/11/18 Range/Units 04:09 04:09 04:09 WBC 9.51 (4.8-10.8) K/uL RBC 3.83 L (4.7-6.1) M/uL Hgb 12.0 L (14.0-18.0) g/dL Hct 35.9 L (42-52) % MCV 93.7 (80-100) fL MCH 31.3 (25-34) pg MCHC 33.4 (32-36) g/dL RDW Std Deviation 42.3 (36.4-46.3) fL RDW Coeff of [place] 12.6 (11.5-14.5) % Plt Count 481 H (130-400) K/uL MPV 9.5 (7.4-10.4) fL Immature Gran % (Auto) 0.5 % Neut % (Auto) 67.3 % Lymph % (Auto) 15.5 % [place] % (Auto) 16.0 % Eos % (Auto) 0.6 % Baso % (Auto) 0.1 % Immature Gran # (Auto) 0.05 H (0.00-0.02) K/uL Neut # (Auto) 6.40 (1.4-6.5) K/uL Lymph # (Auto) 1.47 (1.2-3.4) K/uL [place] # (Auto) 1.52 H (0.11-0.59) K/uL Eos # (Auto) 0.06 (0-0.5) K/uL Baso # (Auto) 0.01 (0-0.2) K/uL APTT 67.8 H* (21.0-31.0) Seconds PTT Ratio 2.6 Sodium (136-145) mmol/L Potassium (3.5-5.1) mmol/L Chloride (98-107) mmol/L Carbon Dioxide (21-32) mmol/L Anion Gap (3-11) BUN (7-18) mg/dl Creatinine (0.6-1.4) mg/dl Est Cr Clr Drug Dosing ml/min Est GFR ( Amer) Est GFR (Non-Af Amer) BUN/Creatinine Ratio (10-20) Glucose (70-99) mg/dl POC Glucose (70-99) Calcium (8.5-10.1) mg/dl Phosphorus (2.5-4.9) mg/dl Procalcitonin 0.10 (0-0.5) ng/ml CMV Specimen Source CMV Qnt PCR IU/mL (<200) IU/mL CMV Qnt PCR log IU/mL (<2.30) log IU/mL 09/11/18 09/10/18 09/10/18 Range/Units 04:09 19:37 18:08 WBC (4.8-10.8) K/uL RBC (4.7-6.1) M/uL Hgb (14.0-18.0) g/dL Hct (42-52) % MCV (80-100) fL MCH (25-34) pg MCHC (32-36) g/dL RDW Std Deviation (36.4-46.3) fL RDW Coeff of [place] (11.5-14.5) % Plt Count (130-400) K/uL MPV (7.4-10.4) fL Immature Gran % (Auto) % Neut % (Auto) % Lymph % (Auto) % [place] % (Auto) % Eos % (Auto) % Baso % (Auto) % Immature Gran # (Auto) (0.00-0.02) K/uL Neut # (Auto) (1.4-6.5) K/uL Lymph # (Auto) (1.2-3.4) K/uL [place] # (Auto) (0.11-0.59) K/uL Eos # (Auto) (0-0.5) K/uL Baso # (Auto) (0-0.2) K/uL APTT (21.0-31.0) Seconds PTT Ratio Sodium 137 (136-145) mmol/L Potassium 2.9 L D (3.5-5.1) mmol/L Chloride 104 (98-107) mmol/L Carbon Dioxide 30 (21-32) mmol/L Anion Gap 3.0 (3-11) BUN 11 (7-18) mg/dl Creatinine 0.49 L (0.6-1.4) mg/dl Est Cr Clr Drug Dosing 206.8 ml/min Est GFR ( Amer) > 150.0 Est GFR (Non-Af Amer) 131.0 BUN/Creatinine Ratio 22.2 H (10-20) Glucose 110 H (70-99) mg/dl POC Glucose 113 H 99 (70-99) Calcium 7.5 L (8.5-10.1) mg/dl Phosphorus 1.9 L D (2.5-4.9) mg/dl Procalcitonin (0-0.5) ng/ml CMV Specimen Source CMV Qnt PCR IU/mL (<200) IU/mL CMV Qnt PCR log IU/mL (<2.30) log IU/mL 09/08/18 Range/Units 11:45 WBC (4.8-10.8) K/uL RBC (4.7-6.1) M/uL Hgb (14.0-18.0) g/dL Hct (42-52) % MCV (80-100) fL MCH (25-34) pg MCHC (32-36) g/dL RDW Std Deviation (36.4-46.3) fL RDW Coeff of [place] (11.5-14.5) % Plt Count (130-400) K/uL MPV (7.4-10.4) fL Immature Gran % (Auto) % Neut % (Auto) % Lymph % (Auto) % [place] % (Auto) % Eos % (Auto) % Baso % (Auto) % Immature Gran # (Auto) (0.00-0.02) K/uL Neut # (Auto) (1.4-6.5) K/uL Lymph # (Auto) (1.2-3.4) K/uL [place] # (Auto) (0.11-0.59) K/uL Eos # (Auto) (0-0.5) K/uL Baso # (Auto) (0-0.2) K/uL APTT (21.0-31.0) Seconds PTT Ratio Sodium (136-145) mmol/L Potassium (3.5-5.1) mmol/L Chloride (98-107) mmol/L Carbon Dioxide (21-32) mmol/L Anion Gap (3-11) BUN (7-18) mg/dl Creatinine (0.6-1.4) mg/dl Est Cr Clr Drug Dosing ml/min Est GFR ( Amer) Est GFR (Non-Af Amer) BUN/Creatinine Ratio (10-20) Glucose (70-99) mg/dl POC Glucose (70-99) Calcium (8.5-10.1) mg/dl Phosphorus (2.5-4.9) mg/dl Procalcitonin (0-0.5) ng/ml CMV Specimen Source Plasma CMV Qnt PCR IU/mL <200 (<200) IU/mL CMV Qnt PCR log IU/mL <2.30 (<2.30) log IU/mL
[2018-09-11] MEDS ORDERED: predniSONE 50 MG TAB PO ONE (08:00)
[2018-09-11] MEDS: POTASSIUM CHLORIDE PWD 20 MEQ PACK PO SCH ×2 (08:24→20:29)
[2018-09-11] MEDS: POLYETHYLENE (MIRALAX) 17 GM PACK PO SCH (08:24)
[2018-09-11] MEDS ORDERED: POTASSIUM PHOSPHATE 21 MMOL in SODIUM CHLORIDE 0.9% 500 ML IV ONE (08:30)
[2018-09-11] MEDS: PANTOprazole 40 MG in SYRINGE 0 ML IV SCH (10:43)
[2018-09-11] MEDS: IMPACT LIQD 1.0 CAL 1,000 ML BAG OG SCH (13:48)
[2018-09-11 15:40] LABS: Hydrocodone Urine NEGATIVE NG/ML (CUTOFF=50); Hydromor Urine NEGATIVE NG/ML (CUTOFF=50); Morphine Urine 537 NG/ML (CUTOFF=50); Norhydrocodone Conf Ur NEGATIVE NG/ML (CUTOFF=50); Noroxycodone Urine NEGATIVE NG/ML (CUTOFF=50); Oxycodone Urine NEGATIVE NG/ML (CUTOFF=50)
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
[2018-09-12] MEDS ORDERED: FUROSEMIDE 40 MG/4 ML VIAL IV STA (00:43)
[2018-09-12] MEDS: fentaNYL DRIP 1,250 MCG/250 ML BAG IV SCH (04:39)
[2018-09-12] MEDS: ACYCLOVIR SOD 780 MG in DEXTROSE 5% 250 ML IV SCH ×3 (04:40→20:26)
[2018-09-12 05:43] LABS: BUN Creatinine Ratio 32.2 (10-20); Blood Urea Nitrogen 16 mg/dl (7-18); Carbon Dioxide 30 mmol/L (21-32); Chloride 104 mmol/L (98-107); Creatinine Clr Calc Pharmacy 202.6 ml/min; Est GFR (African American) > 150.0; Glucose 145 mg/dl (70-99); Magnesium 2.4 mg/dl (1.8-2.4); Potassium 3.5 mmol/L (3.5-5.1); Sodium 136 mmol/L (136-145)
[2018-09-12 05:55] LABS: iSTAT Allen Test Pass; iSTAT Arterial Blood Gas HCO3 27 meg/L (19-24); iSTAT Carbon Dioxide 28 mEq/l (24-31); iSTAT FiO2 40 %
[2018-09-12 06:12] LABS: Partial Thromboplastin Ratio 2.6
[2018-09-12 06:15] LABS: Partial Thromboplastin Time 66.9 Seconds (21.0-31.0)
[2018-09-12] MEDS: predniSONE 20 MG TAB PO SCH (08:28)
[2018-09-12] MEDS: POLYETHYLENE (MIRALAX) 17 GM PACK PO SCH (08:28)
[2018-09-12] MEDS: HEPARIN STANDARD DEXTROSE 25,000 UNITS/500 ML IV SCH (09:31)
[2018-09-12] MEDS ORDERED: acetaZOLAMIDE 500 MG in SYRINGE 0 ML IV STA (09:45)
--- NOTE | 2018-09-12 09:52 | XRay Report ---
SINGLE VIEW CHEST CLINICAL HISTORY: Extubation. FINDINGS: An AP, portable, upright chest radiograph is compared to study dated 09/10/2018 and correlat ed with chest CT dated 09/07/2018. The examination is degraded by portable technique and patient rotat ion. A right internal jugular central venous catheter is unchanged in position. Endotracheal and ente jenny tubes have been removed. The cardiomediastinal silhouette is unremarkable. Multifocal airspace co nsolidation has not appreciably changed from previous. This is greatest at the lung bases. There are small pleural effusions. No pneumothorax is seen. The bony thorax is grossly intact. IMPRESSION: 1. Endotracheal and enteric tubes have been removed. 2. Multifocal patchy airspace consolidation has not appreciably changed from 09/10/2018. 3. Small pleural effusions. Electronically signed by: Sai Romero M.D. 09/12/2018 9:51 AM
[2018-09-12 10:03] LABS: BUN Creatinine Ratio 24.2 (10-20); Calcium 8.2 mg/dl (8.5-10.1); Creatinine Clr Calc Pharmacy 184.2 ml/min; Est GFR (African American) 144.8; Magnesium 2.4 mg/dl (1.8-2.4); Phosphorus 2.7 mg/dl (2.5-4.9); Potassium 3.4 mmol/L (3.5-5.1)
[2018-09-12] MEDS: PANTOprazole 40 MG in SYRINGE 0 ML IV SCH (10:12)
--- NOTE | 2018-09-12 16:49 | Critical Care Progress Note ---
Date of Service September 12, 2018 Supervising Physician Co-Signing Physician Notes Reason Critically Ill: 48-year-old male with hypoxemic respiratory failure PLAN: Neuro: Discontinued sedatives and IV analgesia Resp: Successfully extubated CV: Tachycardia resolved Fluids/Renal: No additional diuresis today ID: Vancomycin and cefepime discontinued -Finished course of doxycycline previously -Bronchoscopy results have a normal xiomara -Urine drug screen positive for opiates reports he had taken codeine cough syrup for approximately 4 days -Denies IVDA, HIV and hepatitis: Both negative GI/Nutrition: Advance diet as tolerated History of splenectomy -Has residual splenic tissue seen on CT Heme: Small subsegmental PE -Heparin infusion DVT prophylaxis: Heparin infusion Endocrine: ICU hyperglycemia protocol Prednisone for fibroproliferative stage of heart -Prednisone 40 mg x 4 days then taper 10 mg every 4 days Vascular access: Peripheral IVs Code Status: Full code I have personally spent 40 minutes of critical care time in the direct management of this patient. This is a life/limb threatening event. This includes time spent evaluating patient, direct bedside care, chart review, placing orders, interpretation of diagnostic studies, discussion with consultants, patient, and/or family members regarding treatment decisions, as well as other required patient management activities. This time is exclusive of all separately billable procedures, and teaching time and separate from and in addition to any other critical care service time. Subjective Patient is hungry after extubation. Physical Exam 2 Vital Signs (Past 24 Hours): Last Vital Signs Temp 36.7 C 09/12/18 08:00 Pulse 113 H 09/12/18 13:00 Resp 24 09/12/18 13:00 BP 118/91 09/12/18 13:00 Pulse Ox 95 09/12/18 13:00 General: Alert. nontoxic. Skin: Warm, dry, Head: Atraumatic Ears, nose, mouth and throat: airway patent Cardiovascular: Normal peripheral perfusion Respiratory: no respiratory distress, scattered rhonchi Gastrointestinal: Non distended Musculoskeletal: No deformity Results & Data Laboratory Results 09/12/18 09/12/18 09/12/18 Range/Units 09:32 05:42 04:39 APTT (21.0-31.0) Seconds PTT Ratio Sample Site R Radial POC pH 7.50 H (7.35-7.45) POC pCO2 34 L (35-46) mmHg POC pO2 68 L (80-95) mmHg POC HCO3 27 H (19-24) sara/L POC Total CO2 28 (24-31) mEq/l POC Base Excess 3.0 H (-9-1.8) sara/L POC ABG O2 Sat 95.0 (90-95) % Saúl Test Pass O2 Delivery Device Ventilator POC O2 Rate 18 Minute Ventilation 8.1 POC FiO2 40 % Tidal Volume 400 PEEP 5 Pressure Support Vent 15 Sodium 137 136 (136-145) mmol/L Potassium 3.4 L 3.5 D (3.5-5.1) mmol/L Chloride 102 104 (98-107) mmol/L Carbon Dioxide 29 30 (21-32) mmol/L Anion Gap 5.0 2.0 L (3-11) BUN 13 16 (7-18) mg/dl Creatinine 0.55 L 0.50 L (0.6-1.4) mg/dl Est Cr Clr Drug Dosing 184.2 202.6 ml/min Est GFR ( Amer) 144.8 > 150.0 Est GFR (Non-Af Amer) 125.0 130.0 BUN/Creatinine Ratio 24.2 H 32.2 H (10-20) Glucose 124 H 145 H (70-99) mg/dl POC Glucose (70-99) Calcium 8.2 L 8.0 L (8.5-10.1) mg/dl Phosphorus 2.7 3.0 D (2.5-4.9) mg/dl Magnesium 2.4 2.4 (1.8-2.4) mg/dl 09/12/18 09/11/18 Range/Units 04:39 18:41 APTT 66.9 H* (21.0-31.0) Seconds PTT Ratio 2.6 Sample Site POC pH (7.35-7.45) POC pCO2 (35-46) mmHg POC pO2 (80-95) mmHg POC HCO3 (19-24) sara/L POC Total CO2 (24-31) mEq/l POC Base Excess (-9-1.8) sara/L POC ABG O2 Sat (90-95) % Saúl Test O2 Delivery Device POC O2 Rate Minute Ventilation POC FiO2 % Tidal Volume PEEP Pressure Support Vent Sodium (136-145) mmol/L Potassium (3.5-5.1) mmol/L Chloride (98-107) mmol/L Carbon Dioxide (21-32) mmol/L Anion Gap (3-11) BUN (7-18) mg/dl Creatinine (0.6-1.4) mg/dl Est Cr Clr Drug Dosing ml/min Est GFR ( Amer) Est GFR (Non-Af Amer) BUN/Creatinine Ratio (10-20) Glucose (70-99) mg/dl POC Glucose 145 H (70-99) Calcium (8.5-10.1) mg/dl Phosphorus (2.5-4.9) mg/dl Magnesium (1.8-2.4) mg/dl Diagnostic Findings I have reviewed the chest x-ray from today
--- NOTE | 2018-09-12 17:04 | Procedure Note ---
Procedure Note Date of Service September 08, 2018 Procedure Date: Noted above Critical Care Medicine Point of Care Bedside Ultrasound Procedure: Limited Bedside Lung Ultrasound Indication: Hypoxia Attending: Arjun Bernal DO Organs Examined: Lung BLUE point (upper), BLUE point (lower), Phrenic Point (axillary), PLAPS point ( posterior) A lines visualized: Negative, Hemithorax: Bilateral B lines visualized: Present, Hemithorax: Bilateral Lung Sliding: Present, Hemithorax: Bilateral Tissue-like Sign: Absent, Hemithorax: Bilateral Shred Sign: Absent, Hemithorax: Bilateral Quad Sign: Present, Hemithorax: Bilateral Sinusoid Sign: Absent, Hemithorax: Bilateral [Type of effusions: Simple, Hemithorax: Bilateral Interpleural distance: Less than 2 cm Impression: Bilateral type B profile consistent with significant volume overload with simple small pleural effusions bilaterally Images obtained are saved for permanent record
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
[2018-09-12 17:40] LABS: Herpes Virus 6 (DNA) Not Detected (Not Detected); Herpes Virus 6 (DNA) Source Plasma; Mycoplasma pneumoniae Ab, IgG 1.84 (<=0.90); Mycoplasma pneumoniae Ab, IgM 53 U/mL (<770)
[2018-09-13] MEDS: HEPARIN STANDARD DEXTROSE 25,000 UNITS/500 ML IV SCH (02:53)
[2018-09-13] MEDS: ACYCLOVIR SOD 780 MG in DEXTROSE 5% 250 ML IV SCH ×3 (04:29→20:17)
[2018-09-13 04:43] LABS: Hematocrit (blood only) 39.1 % (42-52); Mean Corpuscular Hgb Conc 33.2 g/dL (32-36); Mean Platelet Volume 9.5 fL (7.4-10.4); Platelet Count 612 K/uL (130-400); RDW Coefficient of Variation 13.3 % (11.5-14.5); RDW Standard Deviation 45.3 fL (36.4-46.3); Red Blood Count 4.16 M/uL (4.7-6.1)
[2018-09-13 05:00] LABS: Partial Thromboplastin Ratio 2.5
[2018-09-13 05:02] LABS: BUN Creatinine Ratio 21.8 (10-20); Calcium 8.4 mg/dl (8.5-10.1); Creatinine Clr Calc Pharmacy 155.9 ml/min; Est GFR (African American) 135.2; Est GFR (Non-African American) 116.7; Potassium 3.9 mmol/L (3.5-5.1)
[2018-09-13 05:04] LABS: Partial Thromboplastin Time 63.9 Seconds (21.0-31.0)
[2018-09-13] MEDS: predniSONE 20 MG TAB PO SCH (07:29)
[2018-09-13] MEDS: POLYETHYLENE (MIRALAX) 17 GM PACK PO SCH ×2 (07:29→14:31)
--- NOTE | 2018-09-13 09:13 | Critical Care Progress Note ---
Date of Service September 13, 2018 Supervising Physician Co-Signing Physician Notes Reason Critically Ill: 48-year-old male with hypoxemic respiratory failure PLAN: Neuro: Discontinued sedatives and IV analgesia Resp: Supplemental oxygen as needed -Aggressive pulmonary toilet -Still significant exertional dyspnea with prolonged oxygen desaturation CV: Tachycardia resolved Fluids/Renal: ID: Vancomycin and cefepime discontinued -Finished course of doxycycline previously: Elevated mycoplasma IgG, IgM within normal limits -Bronchoscopy results have a normal xiomara -Urine drug screen positive for opiates reports he had taken codeine cough syrup for approximately 4 days: Codeine positive -Denies IVDA, HIV and hepatitis: Both negative -Human herpes virus 6 not detected -CMV not detected GI/Nutrition: Advance diet as tolerated History of splenectomy -Has residual splenic tissue seen on CT Heme: Small subsegmental PE -Heparin infusion: Convert to Lovenox 1.5 mg/kg daily DVT prophylaxis: Lovenox Endocrine: ICU hyperglycemia protocol Prednisone for fibroproliferative stage of heart -Prednisone 40 mg x 4 days then taper 10 mg every 4 days Vascular access: Discontinue CVL convert to peripheral IVs Code Status: Full code I have personally spent 30 minutes of critical care time in the direct management of this patient. This is a life/limb threatening event. This includes time spent evaluating patient, direct bedside care, chart review, placing orders, interpretation of diagnostic studies, discussion with consultants, patient, and/or family members regarding treatment decisions, as well as other required patient management activities. This time is exclusive of all separately billable procedures, and teaching time and separate from and in addition to any other critical care service time. Subjective Moved bowels this morning then became extremely dyspneic took approximately 20 minutes to regain adequate saturation Physical Exam 2 Vital Signs (Past 24 Hours): Last Vital Signs Temp 36.6 C 09/13/18 04:00 Pulse 88 09/13/18 08:30 Resp 22 09/13/18 08:30 BP 103/71 09/13/18 08:00 Pulse Ox 92 09/13/18 08:30 General: Alert. nontoxic. Skin: Warm, dry, Head: Atraumatic Ears, nose, mouth and throat: airway patent Cardiovascular: Normal peripheral perfusion Respiratory: no respiratory distress Gastrointestinal: Non distended Musculoskeletal: No deformity Results & Data Laboratory Results 09/13/18 09/13/18 09/13/18 Range/Units 04:22 04:22 04:22 WBC 10.90 H (4.8-10.8) K/uL RBC 4.16 L (4.7-6.1) M/uL Hgb 13.0 L (14.0-18.0) g/dL Hct 39.1 L (42-52) % MCV 94.0 (80-100) fL MCH 31.3 (25-34) pg MCHC 33.2 (32-36) g/dL RDW Std Deviation 45.3 (36.4-46.3) fL RDW Coeff of [place] 13.3 (11.5-14.5) % Plt Count 612 H (130-400) K/uL MPV 9.5 (7.4-10.4) fL APTT 63.9 H* (21.0-31.0) Seconds PTT Ratio 2.5 Sodium 139 (136-145) mmol/L Potassium 3.9 (3.5-5.1) mmol/L Chloride 113 H (98-107) mmol/L Carbon Dioxide 23 (21-32) mmol/L Anion Gap 3.0 (3-11) BUN 14 (7-18) mg/dl Creatinine 0.65 (0.6-1.4) mg/dl Est Cr Clr Drug Dosing 155.9 ml/min Est GFR ( Amer) 135.2 Est GFR (Non-Af Amer) 116.7 BUN/Creatinine Ratio 21.8 H (10-20) Glucose 86 (70-99) mg/dl Calcium 8.4 L (8.5-10.1) mg/dl Phosphorus (2.5-4.9) mg/dl Magnesium (1.8-2.4) mg/dl Herpesvirus 6 Source HHV-6 DNA (PCR) (Not Detected) Urine Legionella Ag Mycoplasma pneumon IgG (<=0.90) Mycoplasma pneumon IgM (<770) U/mL 09/12/18 09/08/18 Range/Units 09:32 11:42 WBC (4.8-10.8) K/uL RBC (4.7-6.1) M/uL Hgb (14.0-18.0) g/dL Hct (42-52) % MCV (80-100) fL MCH (25-34) pg MCHC (32-36) g/dL RDW Std Deviation (36.4-46.3) fL RDW Coeff of [place] (11.5-14.5) % Plt Count (130-400) K/uL MPV (7.4-10.4) fL APTT (21.0-31.0) Seconds PTT Ratio Sodium 137 (136-145) mmol/L Potassium 3.4 L (3.5-5.1) mmol/L Chloride 102 (98-107) mmol/L Carbon Dioxide 29 (21-32) mmol/L Anion Gap 5.0 (3-11) BUN 13 (7-18) mg/dl Creatinine 0.55 L (0.6-1.4) mg/dl Est Cr Clr Drug Dosing 184.2 ml/min Est GFR ( Amer) 144.8 Est GFR (Non-Af Amer) 125.0 BUN/Creatinine Ratio 24.2 H (10-20) Glucose 124 H (70-99) mg/dl Calcium 8.2 L (8.5-10.1) mg/dl Phosphorus 2.7 (2.5-4.9) mg/dl Magnesium 2.4 (1.8-2.4) mg/dl Herpesvirus 6 Source Plasma HHV-6 DNA (PCR) Not Detected (Not Detected) Urine Legionella Ag Cancelled Mycoplasma pneumon IgG 1.84 H (<=0.90) Mycoplasma pneumon IgM 53 (<770) U/mL
[2018-09-13] MEDS ORDERED: POTASSIUM CHLORIDE 20 MEQ TABCR PO ONE (09:35)
[2018-09-13] MEDS ORDERED: [UNRECOGNIZED DRUG - REMARK] ONE (09:45)
[2018-09-13] MEDS: ENOXAPARIN INJ 120 MG/0.8 ML SYR SQ SCH (10:27)
[2018-09-13] MEDS: MULTIVITAMIN TAB PO SCH (10:28)
[2018-09-13] MEDS: PANTOprazole 40 MG TAB PO SCH (10:28)
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
[2018-09-14] MEDS: ACYCLOVIR SOD 780 MG in DEXTROSE 5% 250 ML IV SCH ×3 (04:25→20:53)
[2018-09-14 05:11] LABS: Partial Thromboplastin Time 26.7 Seconds (21.0-31.0)
[2018-09-14 05:28] LABS: BUN Creatinine Ratio 20.2 (10-20); Calcium 8.8 mg/dl (8.5-10.1); Creatinine Clr Calc Pharmacy 145.5 ml/min; Est GFR (Non-African American) 113.8; Potassium 3.7 mmol/L (3.5-5.1)
--- NOTE | 2018-09-14 06:09 | Critical Care Progress Note ---
Date of Service September 14, 2018 Supervising Physician Co-Signing Physician Notes Reason Critically Ill: 48-year-old male with hypoxemic respiratory failure PLAN: Neuro: Anxiety Resp: Supplemental oxygen as needed -Aggressive pulmonary toilet -Aggressive physical therapy CV: Tachycardia resolved Fluids/Renal: Hypokalemia -Resolved -Daily multivitamin ID: Vancomycin and cefepime discontinued -Finished course of doxycycline previously: Elevated mycoplasma IgG, IgM within normal limits -Bronchoscopy results have a normal xiomara -Finishing 7-day course of acyclovir GI/Nutrition: Advance diet as tolerated History of splenectomy -Has residual splenic tissue seen on CT Heme: Small subsegmental PE -Lovenox 1.5 mg/kg daily DVT prophylaxis: Lovenox -Transition to anticoagulant of choice will likely need at least minimum 3 months Endocrine: ICU hyperglycemia protocol Prednisone for fibroproliferative stage of ARDS -Prednisone 40 mg x 4 days then taper 10 mg every 4 days Vascular access: Peripheral IVs Code Status: Full code Stable for downgrade to medical floor Subjective Continues to improve. No chest pain, exertional dyspnea however mildly improving Physical Exam 2 Vital Signs (Past 24 Hours): Last Vital Signs Temp 36.7 C 09/14/18 04:00 Pulse 101 H 09/14/18 05:00 Resp 25 H 09/14/18 05:00 BP 118/72 09/14/18 05:00 Pulse Ox 92 09/14/18 05:00 General: Alert. nontoxic. Skin: Warm, dry, Head: Atraumatic Ears, nose, mouth and throat: airway patent Cardiovascular: Normal peripheral perfusion Respiratory: no respiratory distress Gastrointestinal: Non distended Musculoskeletal: No deformity Results & Data Laboratory Results 09/14/18 09/14/18 Range/Units 04:21 04:21 APTT 26.7 (21.0-31.0) Seconds PTT Ratio 1.0 Sodium 138 (136-145) mmol/L Potassium 3.7 (3.5-5.1) mmol/L Chloride 109 H (98-107) mmol/L Carbon Dioxide 24 (21-32) mmol/L Anion Gap 5.0 (3-11) BUN 14 (7-18) mg/dl Creatinine 0.69 (0.6-1.4) mg/dl Est Cr Clr Drug Dosing 145.5 ml/min Est GFR ( Amer) 132.0 Est GFR (Non-Af Amer) 113.8 BUN/Creatinine Ratio 20.2 H (10-20) Glucose 82 (70-99) mg/dl Calcium 8.8 (8.5-10.1) mg/dl
[2018-09-14] MEDS: MULTIVITAMIN TAB PO SCH (08:18)
[2018-09-14] MEDS: PANTOprazole 40 MG TAB PO SCH (08:18)
[2018-09-14] MEDS: predniSONE 20 MG TAB PO SCH (08:18)
[2018-09-14] MEDS: ENOXAPARIN INJ 120 MG/0.8 ML SYR SQ SCH (08:18)
[2018-09-14] MEDS: POLYETHYLENE (MIRALAX) 17 GM PACK PO SCH (08:19)
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
[2018-09-15] MEDS: ACYCLOVIR SOD 780 MG in DEXTROSE 5% 250 ML IV SCH (03:42)
[2018-09-15 05:51] LABS: Hematocrit (blood only) 36.2 % (42-52); Hemoglobin 12.6 g/dL (14.0-18.0); Mean Corpuscular Hgb Conc 34.8 g/dL (32-36); Mean Corpuscular Volume 91.9 fL (80-100); Platelet Count 528 K/uL (130-400); RDW Coefficient of Variation 13.1 % (11.5-14.5); Red Blood Count 3.94 M/uL (4.7-6.1); White Blood Count 9.45 K/uL (4.8-10.8)
[2018-09-15 06:09] LABS: Partial Thromboplastin Time 25.4 Seconds (21.0-31.0)
[2018-09-15 06:20] LABS: BUN Creatinine Ratio 18.9 (10-20); Calcium 8.1 mg/dl (8.5-10.1); Creatinine Clr Calc Pharmacy 146.8 ml/min; Est GFR (Non-African American) 113.8; Potassium 3.1 mmol/L (3.5-5.1)
[2018-09-15] MEDS ORDERED: POTASSIUM CHLORIDE 10 MEQ TABCR PO STA (08:09)
[2018-09-15] MEDS: POLYETHYLENE (MIRALAX) 17 GM PACK PO SCH (08:24)
[2018-09-15] MEDS: predniSONE 10 MG TABLET PO SCH (08:24)
[2018-09-15] MEDS: MULTIVITAMIN TAB PO SCH (08:24)
[2018-09-15] MEDS ORDERED: POTASSIUM CHLORIDE / WTR 10 MEQ/100 ML PLCT IV SCH (08:30)
[2018-09-15] MEDS: ENOXAPARIN INJ 120 MG/0.8 ML SYR SQ SCH (09:48)
[2018-09-15] MEDS: PANTOprazole 40 MG TAB PO SCH (11:28)
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
[2018-09-15] MEDS ORDERED: POTASSIUM CHLORIDE 10 MEQ TABCR PO ONE (16:00)
[2018-09-16 06:13] LABS: Hematocrit (blood only) 39.1 % (42-52); Hemoglobin 12.9 g/dL (14.0-18.0); Mean Corpuscular Volume 93.8 fL (80-100); Mean Platelet Volume 9.5 fL (7.4-10.4); Platelet Count 542 K/uL (130-400); RDW Coefficient of Variation 13.4 % (11.5-14.5); RDW Standard Deviation 44.8 fL (36.4-46.3); Red Blood Count 4.17 M/uL (4.7-6.1)
[2018-09-16 06:48] LABS: Calcium 8.5 mg/dl (8.5-10.1); Creatinine Clr Calc Pharmacy 145.2 ml/min; Est GFR (African American) 133.6; Est GFR (Non-African American) 115.2; Magnesium 2.4 mg/dl (1.8-2.4); Phosphorus 2.6 mg/dl (2.5-4.9); Potassium 3.4 mmol/L (3.5-5.1)
[2018-09-16] MEDS: MULTIVITAMIN TAB PO SCH (07:54)
[2018-09-16] MEDS: PANTOprazole 40 MG TAB PO SCH (07:54)
[2018-09-16] MEDS: APIXABAN 5 MG TABLET PO SCH ×2 (07:55→21:27)
[2018-09-16] MEDS: predniSONE 10 MG TABLET PO SCH (07:55)
[2018-09-16] MEDS: POLYETHYLENE (MIRALAX) 17 GM PACK PO SCH (07:56)
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
[2018-09-17 05:51] LABS: Basophils # (auto) 0.02 K/uL (0-0.2); Basophils % (auto) 0.2 %; Eosinophils # (auto) 0.07 K/uL (0-0.5); Eosinophils % (auto) 0.8 %; Hematocrit (blood only) 37.5 % (42-52); Hemoglobin 12.6 g/dL (14.0-18.0); Immature Granulocytes # (auto) 0.03 K/uL (0.00-0.02); Immature Granulocytes % (auto) 0.3 %; Lymphocytes # (auto) 2.36 K/uL (1.2-3.4); Mean Corpuscular Hgb Conc 33.6 g/dL (32-36); Mean Platelet Volume 9.5 fL (7.4-10.4); Monocytes % (auto) 15.4 %; Neutrophils % (auto) 57.3 %; Platelet Count 514 K/uL (130-400); RDW Coefficient of Variation 13.6 % (11.5-14.5); RDW Standard Deviation 45.3 fL (36.4-46.3); Red Blood Count 3.99 M/uL (4.7-6.1); White Blood Count 9.08 K/uL (4.8-10.8)
[2018-09-17 06:17] LABS: BUN Creatinine Ratio 19.2 (10-20); Calcium 8.7 mg/dl (8.5-10.1); Creatinine Clr Calc Pharmacy 176.8 ml/min; Est GFR (African American) 144.8; Potassium 3.3 mmol/L (3.5-5.1)
[2018-09-17] MEDS: PANTOprazole 40 MG TAB PO SCH (08:06)
[2018-09-17] MEDS: MULTIVITAMIN TAB PO SCH (08:06)
[2018-09-17] MEDS: predniSONE 10 MG TABLET PO SCH (08:06)
[2018-09-17] MEDS: APIXABAN 5 MG TABLET PO SCH (08:07)
[2018-09-17] MEDS: POLYETHYLENE (MIRALAX) 17 GM PACK PO SCH (08:08)
[2018-09-17] MEDS ORDERED: POTASSIUM CHLORIDE 20 MEQ TABCR PO STA (09:19)
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
[2018-09-17] MEDS ORDERED: IPRATROPIUM BROMIDE/ALBUTEROL respimat INH INH PRN (13:18)
[2018-09-18] MEDS ORDERED: predniSONE 20 MG TAB PO SCH (09:00)
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
[2018-09-21] MEDS ORDERED: predniSONE 10 MG TABLET PO SCH (09:00)
[2018-09-23] MEDS ORDERED: APIXABAN 5 MG TABLET PO SCH (09:00)
[2018-09-24] MEDS ORDERED: predniSONE 5 MG TAB PO SCH (09:00)
== END 2018-09-17 17:18 | disposition home or self-care (01) | DRG 853 ==
LOC: ED 09:22 → 1E 12:23 → SUATTDRO 12:23 → 1E 13:50 → 2N 09-14 09:44